=== PATIENT | female | born 1985 | race Caucasian/White ===

== ENCOUNTER 2016-08-30 17:05 | Outpatient (CLI) | payer OTHER ==
[~2016-08-30] VITALS: Ht 172.7 cm; Wt 65.0 kg
== END 2016-08-30 18:05 | disposition home or self-care (01) ==
LOC: LDOP 17:05
PROVIDERS: ATTEND Obstetrics & Gynecology
DX: O42.913 Preterm premature rupture of membranes, unspecified as to length of time between rupture and onset of labor, third trimester (principal); O99.013 Anemia complicating pregnancy, third trimester; Z3A.34 34 weeks gestation of pregnancy
CPT/HCPCS: 59025; 99201; 99211; G0463

== ENCOUNTER 2016-10-04 16:21 | Inpatient (IN) | payer OTHER ==
[~2016-10-04] VITALS: Ht 172.7 cm; Wt 72.0 kg
[2016-10-04] MEDS ORDERED: OXYTOCIN 30U/ 0.9% NaCL 500ML 500 ML IV ONE (16:26)
[2016-10-04] MEDS: D5%-LACTATED RINGERS 1,000 ML IV SCH (16:26)
[2016-10-04] MEDS ORDERED: FENTANYL PF 100 MCG/2ML IVPush PRN (16:30)
[2016-10-04 16:46] VITALS: BP 107/65
[2016-10-04] MEDS ORDERED: PLEASE ENTER HEIGHT AND WEIGHT MC SCH (17:00)
[2016-10-04] MEDS: PLEASE ENTER ALLERGIES MC SCH ×2 (17:00)
[2016-10-04] MEDS ORDERED: NEWBORN KIT ONE (18:08)
[2016-10-04] MEDS ORDERED: OXYTOCIN 30U/ 0.9% NaCL 500ML 500 ML ONE (18:08)
[2016-10-04] MEDS ORDERED: OXYTOCIN 30U/ 0.9% NaCL 500ML 500 ML IV PRN (18:32)
[2016-10-04] MEDS: LACTATED RINGERS 1,000 ML IV SCH ×2 (20:43→22:42)
[2016-10-04] MEDS ORDERED: FENTANYL/BUPIV./NS/PF 250 ML EPIDCONT SCH (21:51)
[2016-10-04] MEDS ORDERED: FENTANYL/BUPIV./NS/PF 250 ML EPIDCONT ONE (21:53)
[2016-10-04] MEDS ORDERED: BUPIVACAINE/PF 0.25% ONE (21:53)
[2016-10-04] MEDS ORDERED: LACTATED RINGERS 1,000 ML IVBOLUS PRN (22:00)
[2016-10-04] MEDS ORDERED: EPHEDRINE 50 MG/ML, 1ML IVPush PRN (22:00)
[2016-10-04] MEDS ORDERED: NALOXONE 0.4 MG/ML, 1ML IVPush PRN (22:00)
[2016-10-05] MEDS: D5%-LACTATED RINGERS 1,000 ML IV SCH ×2 (00:26→08:26)
[2016-10-05] MEDS: LACTATED RINGERS 1,000 ML IV SCH ×3 (00:26→08:26)
[2016-10-05] MEDS: PLEASE ENTER ALLERGIES MC SCH ×2 (01:00)
[2016-10-05] MEDS ORDERED: ONDANSETRON 2MG/ML, 2ML ONE (01:25)
[2016-10-05] MEDS ORDERED: IBUPROFEN 600 MG TABLET ONE (05:19)
[2016-10-05] MEDS ORDERED: DOCUSATE 100 MG CAPSULE ONE (05:20)
[2016-10-05] MEDS ORDERED: OXYTOCIN 30U/ 0.9% NaCL 500ML 500 ML IV SCH (05:42)
[2016-10-05] MEDS: OXYTOCIN 30U/ 0.9% NaCL 500ML 500 ML IV SCH ×2 (05:46→15:46)
[2016-10-05] MEDS ORDERED: CALCIUM CARBONATE 500 MG TAB.CHEW PO PRN (06:00)
[2016-10-05] MEDS ORDERED: MISOPROSTOL 200 MCG TABLET PR PRN ×2 (06:00)
[2016-10-05] MEDS ORDERED: ONDANSETRON 2MG/ML, 2ML IV PRN ×2 (06:00)
[2016-10-05] MEDS ORDERED: IBUPROFEN 600 MG TABLET PO PRN (06:00)
[2016-10-05] MEDS ORDERED: OXYcodone/APAP 5/325MG TABLET PO PRN ×4 (06:00)
[2016-10-05] MEDS ORDERED: OXYcodone IR 5MG TABLET PO PRN ×4 (06:00)
[2016-10-05] MEDS ORDERED: OXYcodone/APAP 5/325MG TABLET ONE (07:41)
[2016-10-05] MEDS ORDERED: OXYTOCIN 30U/ 0.9% NaCL 500ML 500 ML ONE (07:42)
[2016-10-05 08:30] VITALS: BP 99/67
[2016-10-05] MEDS ORDERED: PRENATAL VIT/IRON/FA 1 EACH TABLET PO SCH (09:00)
[2016-10-05] MEDS ORDERED: DOCUSATE 100 MG CAPSULE PO SCH (09:00)
[2016-10-05] MEDS: PRENATAL VIT/IRON/FA 1 EACH TABLET PO SCH (09:00)
[2016-10-05] MEDS: DOCUSATE 100 MG CAPSULE PO SCH ×2 (09:00→21:00)
[2016-10-05 12:10] VITALS: BP 98/64
[2016-10-05 14:11] LABS: DIFF TOTAL CELLS COUNTED 100 CELL DIFF
[2016-10-05 14:14] LABS: VERIFY COUNTS? YES
[2016-10-05] MEDS: IBUPROFEN 600 MG TABLET PO PRN (15:27)
[2016-10-05 16:15] VITALS: BP 96/57
[2016-10-05 20:30] VITALS: BP 104/64
[2016-10-06 00:30] VITALS: BP 104/62
[2016-10-06] MEDS: OXYTOCIN 30U/ 0.9% NaCL 500ML 500 ML IV SCH (01:46)
[2016-10-06 08:32] VITALS: BP 99/64
[2016-10-06] MEDS ORDERED: HYDROcodone/APAP 5/325 TABLET PO PRN (09:00)
[2016-10-06] MEDS: DOCUSATE 100 MG CAPSULE PO SCH (10:11)
[2016-10-06] MEDS: PRENATAL VIT/IRON/FA 1 EACH TABLET PO SCH (10:12)
[2016-10-06] MEDS: IBUPROFEN 600 MG TABLET PO PRN (10:12)
[2016-10-06] MEDS ORDERED: DOCU-30 PO (11:17)
[2016-10-06] MEDS ORDERED: HYDR-3240 PO (11:17)
[2016-10-06] MEDS ORDERED: IBUP800T PO (11:17)
[2016-10-06] MEDS ORDERED: SENN-1 PO (11:18)
== END 2016-10-06 12:12 | disposition home or self-care (01) | DRG 775 ==
LOC: LDIP 16:21 → 2NW 10-05 08:13
PROVIDERS: ADMIT Obstetrics & Gynecology; ATTEND Obstetrics & Gynecology
PROC: 0DQR0ZZ Repair Anal Sphincter, Open Approach (ICD-10-PCS; principal; 2016-10-05)
PROC: 10E0XZZ Delivery of Products of Conception, External Approach (ICD-10-PCS; 2016-10-05)
PROC: 00HU33Z Insertion of Infusion Device into Spinal Canal, Percutaneous Approach (ICD-10-PCS; 2016-10-05)
PROC: 3E0R3CZ (ICD-10-PCS; 2016-10-05)
DX: O99.344 Other mental disorders complicating childbirth (principal); O70.20 Third degree perineal laceration during delivery, unspecified; F32.9 Major depressive disorder, single episode, unspecified; O99.02 Anemia complicating childbirth; D64.9 Anemia, unspecified; O35.8XX0 Maternal care for other (suspected) fetal abnormality and damage, not applicable or unspecified; Z37.0 Single live birth; Z3A.39 39 weeks gestation of pregnancy; Z87.440 Personal history of urinary (tract) infections
CPT/HCPCS: 36415; 59025; 85025; 86850; 86900; 99201; J2405; G0463; J2590; J7120